=== PATIENT | male | born 1990 | race Caucasian/White ===

== ENCOUNTER 2016-08-29 22:18 | Emergency (ER) | payer OTHER ==
[~2016-08-29] VITALS: Ht 180.3 cm; Wt 75.3 kg
[2016-08-29 22:23] VITALS: TEMP 36.7; Ht 180.3 cm; Wt 75.3 kg
[2016-08-29] MEDS ORDERED: CYAN100020 PO (22:43)
[2016-08-29] MEDS ORDERED: IBUP-1050 PO (22:43)
[2016-08-29] MEDS ORDERED: DIPHTHERIA/TETANUS/PERTUSSIS 0.5 ML SYR/VIAL IM. ONE (22:45)
[2016-08-29] MEDS ORDERED: AMOXICIL/CLAVU 875MG HOME PACK PO ONE (22:45)
[2016-08-29] MEDS ORDERED: XYLOCAINE 1%/SOD BICARB 20 ML VIAL INFIL ONE (22:45)
[2016-08-29] MEDS ORDERED: AMOX875T PO (23:48)
--- NOTE | 2016-08-29 23:49 | EMERGENCY ROOM VISIT NOTE ---
ED Visit Note First contact with patient: 22:27 CHIEF COMPLAINT: Dog bite to right face with lacerations History of present illness: Patient is a 25-year-old white male who presents to emergency department for evaluation of a dog bite to his right eyebrow. He was attempting to get something from the dog, when it snapped at him. He believes that he was actually scratched through the eyebrow, and beaten on the right fifth finger, which has a superficial scratch. There was bleeding from the lacerations through the eyebrows that were controlled with pressure. They comes in with hydrogen peroxide and water. Bleeding has been controlled. The dogs vaccinations are up-to-date. Patient is unsure of his last tetanus vaccine. REVIEW OF SYSTEMS: Review of systems as per HPI. All other systems reviewed were negative. At least 6 systems reviewed. PMH: Electronic medical records are reviewed and summarized as above/below. See Problem List. 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 PHYSICAL EXAM: Vital Signs: Reviewed Nurse's notes. CONSTITUTIONAL: Patient is a pleasant, well-appearing 25-year-old white male who is awake and alert and in no acute distress. INTEGUMENTARY: The patient has 2 vertical lacerations through the right eyebrow. The first is just medial to the eyebrow and measures 1 cm in length. The second through the midportion of the eyebrow measures 2.5 cm in length. Both the wounds gape widely apart. There is no active bleeding or foreign body. Patient also has a superficial scratch on the dorsal aspect of the distal right fifth finger. Wound edges do not gape. There is also a more superficial abrasion noted on the forehead just below the hairline. EMERGENCY DEPARTMENT COURSE: Patient's tetanus was updated. Given the dog bite/ scratch, he was placed on Augmentin 875 mg 1 tablet twice a day for 5 days. Department of Health animal bite paperwork was completed. The affected area was cleansed saline and Betadine and irrigated thoroughly with normal saline solution. 1% plain buffered lidocaine was infiltrated into the wounds. When adequate anesthesia was obtained. Wounds were explored thoroughly. There was foreign body in the wound. Medial laceration was repaired using 4, 6-0 nylon sutures, laceration in the midportion of the eyebrow was repaired using 8, 6-0 nylon sutures. Bacitracin was applied as a bandage. The wound on the finger does not require closure with sutures. Current/Historical Medications Scheduled Cyanocobalamin (Vitamin B12), 2 TABS PO DAILY Ibuprofen (Advil), 400 MG PO PRN UD Allergies Coded Allergies: No Known Allergies (Unverified , 08/29/16) Vital Signs Date Time Temp Pulse Resp B/P Pulse Ox O2 Delivery O2 Flow Rate FiO2 08/29/16 22:23 36.7 98 20 133/89 95 Room Air Medications Administered Medications (Trade) Dose Ordered Sig/Evelina Route Start Time Stop Time Status Last Admin Dose Admin Diphtheria/ Pertussis/Tetanus Vacc (Adacel Inj) 0.5 ml ONCE ONCE IM. 08/29/16 22:45 08/29/16 22:49 DC 08/29/16 22:48 0.5 ML Lidocaine HCl (Buffered Lidocaine 1% Inj) 20 ml ONE ONCE INFIL 08/29/16 22:45 08/29/16 22:49 DC 08/29/16 22:47 20 ML Departure Information Impression Primary Impression: Eyebrow laceration Additional Impression: Dog bite of face Prescriptions Amoxicillin & Pot Clavulanate (Augmentin 875-125 mg) 1 Tab Tab 1 TAB PO BID, #10 TAB Prov: Jeanine Rodriguez PA 08/29/16 Referrals [facility] (PCP) Patient Instructions My [facility] Additional Instructions Keep wounds clean and dry. Do not allow any crusting or dried blood to accumulate on sutures. Cleansed gently with mild soap and water. Use an antibiotic ointment for 3-4 days, then let wound dry. Suture removal in 6-7 days. Return sooner for any signs of infection (increasing redness, swelling, drainage). Ice and elevate for swelling and pain. Ibuprofen 600 mg and Tylenol 1000 mg every 6 hrs for pain. Augmentin 875: Take one pill twice daily for 5 days to prevent infection. All antibiotics can cause diarrhea. If this occurs and you feel worse or it does not resolve in 1-2 days follow up with your doctor or return to the Emergency Department as this could be signs of serious underlying problems. Any medication can cause an allergic reaction, stop the pills immediately and return to the ER for rash, hives, breathing difficulties, or swelling. Problem Qualifiers
[2016-08-29 23:55] VITALS: BP 121/93; PULSE 70; O2SAT 97
== END 2016-08-29 23:57 | disposition home or self-care (01) ==
LOC: C.EDB 22:19 → C.EDA 23:57
DX: S01.151A Open bite of right eyelid and periocular area, initial encounter (principal); S60.416A Abrasion of right little finger, initial encounter; W54.0XXA Bitten by dog, initial encounter

== ENCOUNTER 2016-09-04 07:25 | Emergency (ER) | payer OTHER ==
[~2016-09-04] VITALS: Ht 177.8 cm; Wt 73.8 kg
[~2016-09-04 07:25] MED LIST: AMOX875T PO; CYAN100020 PO; IBUP-1050 PO
[2016-09-04 07:26] VITALS: BP 114/78; PULSE 77; TEMP 36.4; O2SAT 98; Ht 177.8 cm; Wt 73.8 kg
--- NOTE | 2016-09-04 13:39 | EMERGENCY ROOM VISIT NOTE ---
ED Visit Note First contact with patient: 07:37 CHIEF COMPLAINT: Suture removal This patient returns to the ED today for removal of sutures that were placed 6 days ago. There has been no swelling, redness, or drainage from the wound. The patient feels like the laceration is healing well. REVIEW OF SYSTEMS: Head: No headache, injury or neck pain. Skin: No rash, new lesions, or masses. General: No fever or chills, fatigue, loss of appetite , or significant recent weight gain or loss. PMH: The patient is healthy; there is no significant medical or surgical history. SOCIAL HISTORY: Patient lives at home. PHYSICAL EXAM: Vital Signs: Reviewed Nurse's notes. There are 2 sutured wounds in the right eyebrow with no signs of infection. There is no erythema, swelling , or tenderness. EMERGENCY DEPARTMENT COURSE: The sutures were removed without any difficulty and there was no separation of the wound edges. DIAGNOSIS: Healing laceration and suture removal DISCHARGE INSTRUCTIONS AND TREATMENT: Wash any remaining crusts off of the wound today and resume your normal activities. Current/Historical Medications Scheduled Amoxicillin & Pot Clavulanate (Augmentin 875-125 mg), 1 TAB PO BID Cyanocobalamin (Vitamin B12), 2 TABS PO DAILY Ibuprofen (Advil), 400 MG PO PRN UD Allergies Coded Allergies: No Known Allergies (Unverified , 09/04/16) Vital Signs Date Time Temp Pulse Resp B/P Pulse Ox O2 Delivery O2 Flow Rate FiO2 09/04/16 07:26 36.4 77 18 114/78 98 Room Air Departure Information Impression Primary Impression: Encounter for removal of sutures Dispostion Home / Self-Care Referrals No Doctor, Assigned (PCP) Forms HOME CARE DOCUMENTATION FORM, IMPORTANT VISIT INFORMATION Patient Instructions [facility]
== END 2016-09-04 08:09 | disposition home or self-care (01) ==
LOC: C.EDB 07:25 → C.EDA 08:09
DX: Z48.02 Encounter for removal of sutures (principal); S01.111D Laceration without foreign body of right eyelid and periocular area, subsequent encounter; X58.XXXD Exposure to other specified factors, subsequent encounter

== ENCOUNTER 2016-10-04 12:00 | Emergency (ER) | payer OTHER ==
[~2016-10-04] VITALS: Ht 180.3 cm; Wt 72.5 kg
[~2016-10-04 12:00] MED LIST changes: -FENTANYL CITRATE INJ 50 MCG/1 ML 2 ML VIAL ONE; -MIDAZOLAM HCL 5 MG/ML 1 ML VIAL ONE; -SODIUM CHLORIDE 0.9% 500ML 500 ML IV ONE
[2016-10-04 12:06] VITALS: Ht 180.3 cm; Wt 72.5 kg
--- NOTE | 2016-10-04 12:23 | EMERGENCY ROOM VISIT NOTE ---
ED Visit Note First contact with patient: 12:17 CHIEF COMPLAINT: Suture removal This patient returns to the ED today for removal of sutures that were placed on August 29 and removed on the 04 of September, however the patient noticed that there was still one in place on the skin within the right eyebrow. There has been no swelling, redness, or drainage from the wound. The patient feels like the laceration is healing well. REVIEW OF SYSTEMS: Head: No headache, injury or neck pain. Skin: No rash, new lesions, or masses. General: No fever or chills, fatigue, loss of appetite , or significant recent weight gain or loss. PMH: The patient is healthy; there is no significant medical or surgical history. SOCIAL HISTORY: Patient lives at home. PHYSICAL EXAM: Vital Signs: Reviewed Nurse's notes. There is a sutured wound on the right eyebrow with no signs of infection. There is no erythema, swelling , or tenderness. EMERGENCY DEPARTMENT COURSE: The sutures were removed without any difficulty and there was no separation of the wound edges. DIAGNOSIS: Healing laceration and suture removal Current/Historical Medications Scheduled Cyanocobalamin (Vitamin B12), 2 TABS PO QPM Scheduled PRN Ibuprofen (Advil), 200-600 MG PO Q6H PRN for Pain Allergies Coded Allergies: No Known Allergies (Verified , 10/04/16) Vital Signs Date Time Temp Pulse Resp B/P Pulse Ox O2 Delivery O2 Flow Rate FiO2 10/04/16 12:30 36.5 80 18 100 10/04/16 12:06 36.5 101 18 103/69 100 Room Air Departure Information Impression Primary Impression: Encounter for removal of sutures Dispostion Home / Self-Care Condition GOOD Referrals No Doctor, Assigned (PCP) Patient Instructions My [facility] Additional Instructions DISCHARGE INSTRUCTIONS AND TREATMENT: Wash any remaining crusts off of the wound today and resume your normal activities.
[2016-10-04 12:30] VITALS: BP 103/69; PULSE 80; TEMP 36.5; O2SAT 100
== END 2016-10-04 12:30 | disposition home or self-care (01) ==
LOC: C.EDB 12:04 → C.EDD 12:30
DX: Z48.02 Encounter for removal of sutures (principal); S01.111D Laceration without foreign body of right eyelid and periocular area, subsequent encounter; X58.XXXD Exposure to other specified factors, subsequent encounter

== ENCOUNTER → 2016-10-04 | Day surgery (SDC) | payer OTHER ==
[2016-10-01 10:30] VITALS: Ht 180.3 cm; Wt 73.6 kg
[~2016-10-04] VITALS: Ht 180.3 cm; Wt 73.6 kg
[~2016-10-04] MED LIST changes: -AMOX875T PO; +FENTANYL CITRATE INJ 50 MCG/1 ML 2 ML VIAL ONE; +MIDAZOLAM HCL 5 MG/ML 1 ML VIAL ONE; +SODIUM CHLORIDE 0.9% 500ML 500 ML IV ONE
--- NOTE | 2016-10-04 10:28 | Endo History and Physical ---
History & Physical Date of Service: October 04, 2016. Chief Complaint: chronic diarrhea Referring Physician: [facility] History of Present Illness 25 yo CM who presents for colonoscopy secondary to chronic diarrhea. Past Surgical History Hx Cardiac Surgery: No Hx Internal Defibrillator: No Hx Pacemaker: No Hx Abdominal Surgery: No Hx of Implantable Prosthesis: No Hx Cancer Surgery: No Hx Thoracic Surgery: No Hx Orthopedic: No Hx Urinary Tract Surgery: No Family History Colon CA, Polyp Social History Smoking Status: Never Smoker Hx Substance Use: No Hx Alcohol Use: Yes (OCCASIONAL/SOCIAL) Allergies Coded Allergies: No Known Allergies (Verified , 10/04/16) Current Medications Reported Home Medications Medications Dose Route/Sig Max Daily Dose Days Date Category Dose Instructions Vitamin B12 (Cyanocobalamin) Unknown Strength Tab 2 Tabs PO QPM 08/29/16 Reported GUMMIES Advil (Ibuprofen) 200 Mg Tab 200-600 Mg PO Q6H PRN 08/29/16 Reported Vital Signs Weight (Kilograms): 73.64 Height (Feet): 5 Height (Inches): 11 Date Time Temp Pulse Resp B/P Pulse Ox O2 Delivery O2 Flow Rate FiO2 10/04/16 09:46 36.6 94 16 120/89 96 Room Air Physical Exam General Appearance: WD/WN, no apparent distress Respiratory/Chest: Auscultation: breath sounds normal Cardiovascular: Heart Auscultation: RRR Abdomen: Bowel Sounds: normal Inspection & Palpation: soft, non-distended, no tenderness, guarding & rebound Assessment and Plan Assessment: 25 yo CM who presents for colonoscopy secondary to chronic diarrhea. Plan: Proceed with colonoscopy.
--- NOTE | 2016-10-04 11:10 | GI REPORT ---
Procedure Date: 10/04/2016 10:24 AM Procedure: Colonoscopy Indications: Chronic diarrhea Medicines: Fentanyl 100 micrograms IV, Midazolam 6 mg IV Complications: No immediate complications. Estimated Blood Loss: Estimated blood loss: none. Procedure: Pre-Anesthesia Assessment: - Prior to the procedure, a History and Physical was performed, and patient medications and allergies were reviewed. The patient's tolerance of previous anesthesia was also reviewed. The risks and benefits of the procedure and the sedation options and risks were discussed with the patient. All questions were answered, and informed consent was obtained. Prior Anticoagulants: The patient has taken no previous anticoagulant or antiplatelet agents. ASA Grade Assessment: II - A patient with mild systemic disease. After reviewing the risks and benefits, the patient was deemed in satisfactory condition to undergo the procedure. After I obtained informed consent, the scope was passed under direct vision. Throughout the procedure, the patient's blood pressure, pulse, and oxygen saturations were monitored continuously. The scope was introduced through the anus and advanced to the terminal ileum. The colonoscopy was performed without difficulty. The patient tolerated the procedure well. The quality of the bowel preparation was good. The terminal ileum, ileocecal valve, appendiceal orifice, and rectum were photographed. Findings: The colon (entire examined portion) appeared normal. Multiple random biopsies were obtained with cold forceps for histology in the entire colon. Fluid aspiration for cytology was performed. Impression: - The entire examined colon is normal. Fluid aspiration performed. - Multiple random biopsies were obtained in the entire colon. Recommendation: - Resume previous diet. - Continue present medications. - Repeat colonoscopy for surveillance based on pathology results. - Return to primary care physician as previously scheduled. Roman Isaacs DO 10/04/2016 11:09:37 AM This report has been signed electronically. Note Initiated On: 10/04/2016 10:24 AM I attest to the content of the Intraoperative Record and orders documented therein, exceptions below
[2016-10-04 11:29] VITALS: BP 105/79; PULSE 85; O2SAT 98
--- NOTE | 2016-10-04 11:49 | Discharge Instructions ---
Endoscopy Patient Instructions Date / Procedure(s) Performed October 04, 2016. Colonoscopy Allergy Information Coded Allergies: No Known Allergies (Verified , 10/04/16) Discharge Date / Findings October 04, 2016. Random colon biopsies Stool studies collected Medication Instructions Stopped Medication(s): last dose B12 Tuesday Provider Instructions Activity Restrictions - No exercising or heavy lifting for 24 hours. - Do not drink alcohol the day of the procedure. - Do not drive a car or operate machinery until the day after the procedure. - Do not make any important decisions or sign important papers in 24 hours after the procedure. Following Day: - Return to full activity which may include returning to work/school. Diet Start your diet with liquids and light foods (jello, soup, juice, toast). Then eat your usual diet if not nauseated. Treatment For Common After Affects For mild abdominal pain, bloating, or excessive gas: - Rest - Eat lightly - Lie on right side Follow-Up Information Follow-up with [facility] as scheduled Anesthesia Information What You Should Know You have had a procedure that required some medicine to reduce anxiety and discomfort. This treatment is called moderate sedation. After receiving the treatment, you may be sleepy, but you will be able to breathe on your own. The effects of the treatment may last for several hours. Follow these instructions along with Activity/Diet recommendations noted above: * Do NOT do anything where dizziness or clumsiness would be dangerous. * Rest quietly at home today, then you can be up and about tomorrow. * Have a responsible person stay with you the rest of today. * You may have had an I.V. today. If so, you may take the dressing off later today. Recommendations Call your doctor if: * Trouble breathing * Continuous vomiting for more than 24 hours * Temperature above 101 degrees * Severe abdominal pain or bloating * Pain not relieved by pain medicine ordered * There is increased drainage or redness from any incision * A large amount of rectal bleeding greater than 2-3 tablespoons. (If you had a polyp/s removed or have hemorrhoids, a small amount of blood - from the rectum is to be expected.) * You have any unanswered questions or concerns. IN THE EVENT OF A SERIOUS EMERGENCY, GO TO THE NEAREST EMERGENCY ROOM Your discharge instructions were prepared by provider Roman Isaacs. Patient Instructions Signature Page Umberto Hicks Patient (or Guardian) Signature/Date: I have read and understand the instructions given to me by my caregivers. Caregiver/RN/Doctor Signature/Date: The above-named patient and/or guardian has received patient instructions on this date. + Original Patient Signature Page (only) stays with chart. Please make copy for patient.
== END | disposition home or self-care (01) ==
LOC: C.GI 09:24
PROVIDERS: ATTEND Internal Medicine
DX: K52.9 Noninfective gastroenteritis and colitis, unspecified (principal); K63.89 Other specified diseases of intestine; Z80.0 Family history of malignant neoplasm of digestive organs